=== PATIENT | male | born 1940 | race Two or more races ===

== ENCOUNTER 2019-02-21 14:06 | Inpatient (IN) | payer OTHER ==
[~2019-02-21] VITALS: Ht 157.5 cm; Wt 54.4 kg
[2019-03-08] MEDS ORDERED: ATORVASTATIN CA10 MG PO (09:48)
[2019-03-08] MEDS ORDERED: HYDROCHLOROTH12.5 M1 PO (09:49)
[2019-03-08] MEDS ORDERED: GLIPIZIDE ER5 MG PO (09:49)
[2019-03-08] MEDS ORDERED: TAMS0.4C PO (09:49)
[2019-03-08] MEDS ORDERED: ALPHAGAN P5 M2 OP (09:50)
[2019-03-08] MEDS ORDERED: FORTAMET1000 MG PO (09:50)
[2019-03-08] MEDS ORDERED: SYNTHROID75 MCG PO (09:50)
[2019-03-08] MEDS ORDERED: LATANOPROST (09:51)
[2019-03-08] MEDS ORDERED: ISTALOL2.5 ML OTIC (09:52)
[2019-03-15] MEDS ORDERED: LATANOPROST2.5 ML OP (09:52)
== END 2019-03-18 19:33 | disposition home or self-care (01) | DRG 330 ==
LOC: SURG 03-08 09:15 → SURH 03-15 08:27 → O/R 03-15 08:27 → SURG 03-15 09:15 → SURH 03-15 18:17
PROVIDERS: ADMIT Colon & Rectal Surgery
PROC: 07TD4ZZ Resection of Aortic Lymphatic, Percutaneous Endoscopic Approach (ICD-10-PCS; 2019-03-15)
PROC: 0DTF4ZZ Resection of Right Large Intestine, Percutaneous Endoscopic Approach (ICD-10-PCS; principal; 2019-03-15 14:00)
DX: D12.2 Benign neoplasm of ascending colon (principal); K92.1 Melena; I48.1 Persistent atrial fibrillation; R59.0 Localized enlarged lymph nodes; K63.89 Other specified diseases of intestine; K66.0 Peritoneal adhesions (postprocedural) (postinfection); E03.8 Other specified hypothyroidism; E11.9 Type 2 diabetes mellitus without complications; Z79.4 Long term (current) use of insulin; Z79.01 Long term (current) use of anticoagulants